=== PATIENT | male | born 2000 ===

== ENCOUNTER 2022-02-24 17:34 | Emergency (ER) | payer OTHER ==
[~2022-02-24] VITALS: Ht 170.2 cm; Wt 77.0 kg
[2022-02-24] MEDS ORDERED: fentaNYL CITRATE 100 MCG/2 ML VL IV ONE ×3 (18:30→20:00)
[2022-02-24] MEDS ORDERED: cefTRIAXone 1GM/50ML D5W 50 ML IV ONE (19:00)
[2022-02-24] MEDS ORDERED: TETANUS-DIPTH-ACEL PERTUSSIS 0.5ML SYR Tdap IM ONE (19:00)
[2022-02-24 21:24] VITALS: BP 171/102
== END 2022-02-24 21:35 | disposition short-term general hospital (02) ==
LOC: EDBD 17:34 → ER 17:34
DX: S52.302C Unspecified fracture of shaft of left radius, initial encounter for open fracture type IIIA, IIIB, or IIIC (principal); S52.202C Unspecified fracture of shaft of left ulna, initial encounter for open fracture type IIIA, IIIB, or IIIC; F10.10 Alcohol abuse, uncomplicated; V86.55XA Driver of 3- or 4- wheeled all-terrain vehicle (ATV) injured in nontraffic accident, initial encounter; Y93.89 Activity, other specified; Y92.89 Other specified places as the place of occurrence of the external cause; Y99.8 Other external cause status; Y90.9 Presence of alcohol in blood, level not specified
CPT/HCPCS: 73090; 73120; 90471; 90715; 96365; 96375; 96376; 99285; J0696; J3010